=== PATIENT | female | born 1990 | race Caucasian/White ===

== ENCOUNTER 2019-07-13 17:08 | Day surgery (SDC) | payer BC ==
[2019-07-13 17:46] VITALS: BP 105/74; TEMP 98.7; BMI 26.9
[2019-07-13] MEDS ORDERED: FLU VACC QS2019-20(6MOS UP)/PF 60 MCG/0.5 ML SYRINGE IM ONE (18:00)
[2019-07-13 18:09] LABS: Amnisure Test No Membranes Rupture (No Rupture)
[2019-07-13 18:10] LABS: Amnisure Internal Control QC ACCEPTABLE (ACCEPTABLE)
--- NOTE | 2019-07-13 18:23 | PDOC.LDHP ---
Labor and Delivery H&P Chief complaint: loss of fluid HPI: 29 y/o G1 at 40w4d, patient of Dr. Samson, presents with ?LOF since this morning. She reports feeling wetter than usual, but never had a large gush of fluid or significant leakage. Denies, VB, painful ctx, or other concerns. +FM ROS neg for HEENT, cv, pulm, gi, gu, neuro, psych, skin, musculoskeletal or constitutional symptoms other than mentioned above. OB History Details: 1st Current complications: none Past Medical History: None Current medications: pre- vitamins Previous surgical history: none Allergies/Adverse Reactions: Allergies Allergy/AdvReac Type Severity Reaction Status Date / Time minocycline Allergy Mild Nausea Verified 07/13/19 17:47 Social history: none - Physical Exam Vital signs reviewed and normal: yes General: NAD, resting Lungs: nonlabored breathing Abdomen: gravid Extremeties: no edema FHT: category 1 (140s, mod variability, + accels, no decels) [place] contractions every: irregular - Vaginal Exam cm dilated: 3 (SSE neg for pooling, valsalva) Effacement: 75% Station: 0 - Assessment 29 y/o G1 at 40w4d with no e/o SROM or active labor. Amnisure negative, SSE neg for pooling or valsalva. status reassuring with reactive NST. - Plan -: D/c home with precautions. Advised to keep induction scheduled for tomorrow.
== END 2019-07-13 18:30 | disposition home or self-care (01) ==
LOC: L&D/OP 17:08
PROVIDERS: ATTEND Obstetrics & Gynecology
DX: O47.1 False labor at or after 37 completed weeks of gestation (principal); Z3A.40 40 weeks gestation of pregnancy; Z88.1 Allergy status to other antibiotic agents
CPT/HCPCS: 84112

== ENCOUNTER 2019-07-14 19:15 | Inpatient (IN) | payer BC ==
[~2019-07-14 19:15] MED LIST: Bupivacaine HCl 0.5%/Epinephrine 1:200,000/PF 30 ml Vial ONE
[2019-07-14] MEDS ORDERED: Promethazine HCl 25 MG/ML VIAL IM PRN (19:32)
[2019-07-14] MEDS ORDERED: Butorphanol Tartrate 1 MG/ML VIAL SLOW IVP PRN (19:32)
[2019-07-14] MEDS ORDERED: Ondansetron PF 4 MG/2 ML Vial IVP PRN (19:32)
[2019-07-14] MEDS ORDERED: Lidocaine 1% (PF) 30 ML VIAL SC PRN (19:32)
[2019-07-14] MEDS ORDERED: HYDROcodone/Acetaminophen 5/325 mg Tablet PO PRN ×2 (19:32)
[2019-07-14] MEDS ORDERED: NS / Oxytocin 40 units/1000ml 1,000 ML IV PRN (19:32)
[2019-07-14] MEDS ORDERED: Ibuprofen 800 MG TAB PO PRN (19:32)
[2019-07-14] MEDS ORDERED: hydrALAZINE 20 MG/ML VIAL SLOW IVP PRN (19:32)
--- NOTE | 2019-07-14 19:37 | PDOC.LDHP ---
Labor and Delivery H&P Chief complaint: scheduled induction HPI: Pt is a 29yo here for IOL @ 40.5 weeks. Current gestational age (weeks): 40 Due date: 07/09/19 Dating criteria: last menstrual period Grav: 1 Para: 0 Current complications: none Abnormal US findings: No Current medications: pre-humaira vitamins Previous surgical history: none Allergies/Adverse Reactions: Allergies Allergy/AdvReac Type Severity Reaction Status Date / Time minocycline Allergy Mild Nausea Verified 07/13/19 17:47 Social history: none - Physical Exam General: NAD Heart: RRR Lungs: CTAB Abdomen: gravid Extremeties: no edema FHT: category 1 - OB Labs Blood type: O RH: positive Antibody Screen: negative HIV: negative RPR: negative HEPSAg: negative 1 hour GCT: negative GBS: negative Urine drug screen: negative Rubella: immune - Assessment L&D Assessment: medically indicated induction (Prolonged ) - Plan Plan: admit to L&D, cervical ripening, labor augmentation if indicated, informed consent obtained, anesthesia consult for pain management -: A/P: IOL @ 40.5 weeks. Epidural at patient request. Cytotec/Pitocin as indicated for cervical ripening/induction/augmentation.
[2019-07-14] MEDS ORDERED: Misoprostol 100 MCG TAB VAG SCH (19:45)
[2019-07-14] MEDS ORDERED: NS w/ Oxytocin 10 units 500 ML IV SCH ×2 (19:45)
[2019-07-14] MEDS: Lactated Ringer's 1,000 ML IV SCH ×2 (20:42→22:33)
[2019-07-14 21:42] VITALS: BMI 26.9
[2019-07-14] MEDS ORDERED: FLU VACC QS2019-20(6MOS UP)/PF 60 MCG/0.5 ML SYRINGE IM ONE (21:45)
[2019-07-14 21:57] LABS: Hemoglobin 11.9 g/dL (12.0-16.0); Mean Corpuscular HGB CONC 35.4 g/dL (32.0-36.0); Mean Corpuscular Hemoglobin 30.6 pg (27.0-31.0); Mean Corpuscular Volume 86.6 fL (78.0-98.0); Mean Platelet Volume 10.3 fL (7.4-10.4); Platelet Count 153 thou/uL (130-400); Red Blood Cell (RBC) Count 3.89 mill/uL (4.20-5.40)
[2019-07-14 22:38] LABS: Syphilis Antibody Nonreactive (Nonreactive); Syphilis Antibody Index 0.05 S/CO (<1.00 Non-Reactive)
[2019-07-14 22:40] LABS: HBSAg Index 0.29 S/CO (0-0.99); Hep B Surf Ag Non-Reactive S/CO (NonReactive)
[2019-07-15] MEDS ORDERED: Fentanyl 4 mcg/Bup 0.1% Cadd 100 ML ONE (06:14)
[2019-07-15] MEDS ORDERED: ePHEDrine/0.9% NaCl/PF SYRINGE 50 mg/10 ml SLOW IVP PRN (06:57)
[2019-07-15] MEDS ORDERED: Naloxone HCl 0.4 mg/ml Vial IVP PRN ×2 (06:57)
[2019-07-15] MEDS ORDERED: diphenhydrAMINE 50 MG/ML VIAL IVP PRN (06:57)
[2019-07-15] MEDS ORDERED: Acetaminophen 325 MG TAB PO PRN (06:57)
[2019-07-15] MEDS ORDERED: Promethazine HCl 25 MG/ML VIAL IM PRN (06:57)
[2019-07-15] MEDS ORDERED: Lactated Ringer's 500 ML IV PRN (06:57)
[2019-07-15] MEDS ORDERED: Communication Order-Pharmacy FS SCH (07:00)
[2019-07-15] MEDS: Lactated Ringer's 1,000 ML IV SCH ×2 (07:15→07:18)
[2019-07-15] MEDS ORDERED: NS / Oxytocin 40 units/1000ml 1,000 ML ONE (07:21)
[2019-07-15] MEDS ORDERED: Lidocaine 1% (PF) 30 ML VIAL ONE (07:21)
--- NOTE | 2019-07-15 08:37 | PDOC.OPDEL ---
OB Operative/Delivery Note Delivery Dr/Surgeon: Chapin Pre-Delivery Diagnosis: medically indicated induction (prolong preg) Weeks gestation: 40 Anesthesia: epidural - Findings A Sex: male - 1 min: 9 - 5 min: 9 - Additional Findings/Plan Repaired Obstetrical Laceration: 2nd degree Estimated blood loss: 225ml Post delivery plan: routine recovery
[2019-07-15] MEDS: Ondansetron PF 4 MG/2 ML Vial IVP PRN ×2 (08:45→09:33)
[2019-07-15] MEDS ORDERED: Bisacodyl 10 MG SUPP PR PRN (10:19)
[2019-07-15] MEDS ORDERED: Lanolin Ointment 7 GM TUBE TOP PRN (10:19)
[2019-07-15] MEDS ORDERED: HYDROcodone/Acetaminophen 5/325 mg Tablet PO PRN ×2 (10:19)
[2019-07-15] MEDS ORDERED: Ondansetron PF 4 MG/2 ML Vial IVP PRN (10:19)
[2019-07-15] MEDS ORDERED: Milk Of Magnesia 30 ML UDCUP PO PRN (10:19)
[2019-07-15] MEDS ORDERED: NS / Oxytocin 40 units/1000ml 1,000 ML IV SCH (10:19)
[2019-07-15] MEDS ORDERED: Benzocaine-Menthol 82.5 ML CAN TOP PRN (10:19)
[2019-07-15] MEDS ORDERED: hydrALAZINE 20 MG/ML VIAL SLOW IVP PRN (10:19)
[2019-07-15] MEDS ORDERED: Adacel (T-DAP) 0.5 ML SYRINGE IM ONE (10:19)
[2019-07-15] MEDS ORDERED: Docusate Calcium (SURFAK) 240 MG CAP PO SCH (11:00)
[2019-07-15] MEDS ORDERED: Prenatal Vitamin 1 TAB PO SCH (11:00)
[2019-07-15] MEDS: Ibuprofen 800 MG TAB PO SCH ×2 (16:18→21:40)
[2019-07-15] MEDS: Ferrous Sulfate 325 MG TAB PO SCH (17:04)
--- NOTE | 2019-07-15 21:25 | PDOC.PP ---
Post Progress Note Post Day #: 0 Subjective: doing well, baby not latching this evening but did earlier today PO intake tolerated: yes Vital Signs (12 hours) Temp Pulse Resp BP Pulse Ox 07/15/19 19:14 98.1 F 74 15 101/55 L 96 07/15/19 15:39 98.1 F 75 14 95/52 L 96 07/15/19 12:40 98.7 F 61 16 93/54 L 07/15/19 11:20 98.0 F 75 16 99/59 L 99 Weight Weight 157 lb - Physical Examination General: NAD Respiratory: non-labored breathing Psychiatric: normal affect Result Diagrams: 07/14/19 21:12 Additional Labs: Post Labs Blood Type O POSITIVE 07/14/19 22:48 Hep Bs Antigen Non-Reactive S/CO (NonReactive) 07/14/19 21:12 (1) 40 weeks gestation of Code(s): Z3A.40 - 40 WEEKS GESTATION OF Status: Acute (2) Vaginal delivery Code(s): O80 - ENCOUNTER FOR FULL-TERM UNCOMPLICATED DELIVERY Status: Acute - Assessment/Plan PPD0 doing well, will continue to advance orders.
[2019-07-15] MEDS: Docusate Calcium (SURFAK) 240 MG CAP PO SCH (21:40)
[2019-07-16] MEDS: Ibuprofen 800 MG TAB PO SCH ×3 (03:49→21:39)
[2019-07-16 06:33] LABS: Hemoglobin 10.9 g/dL (12.0-16.0)
[2019-07-16] MEDS: Ferrous Sulfate 325 MG TAB PO SCH ×2 (08:02→18:37)
[2019-07-16] MEDS: Docusate Calcium (SURFAK) 240 MG CAP PO SCH ×2 (08:03→21:39)
[2019-07-16] MEDS: Prenatal Vitamin 1 TAB PO SCH (08:03)
--- NOTE | 2019-07-16 08:13 | PDOC.PP ---
Post Progress Note Post Day #: 1 Subjective: doing well, breast feeding, normal lochia PO intake tolerated: yes Flatus: yes Ambulation: yes Vital Signs (12 hours) Temp Pulse Resp BP Pulse Ox 07/16/19 07:27 98.4 F 60 16 112/68 97 07/16/19 03:50 98.1 F 71 16 101/54 L 98 07/15/19 23:18 98.3 F 64 18 102/54 L 97 Weight Weight 157 lb - Physical Examination General: NAD Respiratory: non-labored breathing Abdominal: no distention Fundus firm & at: below umb Skin: no rash Neurological: no gross focal deficits Psychiatric: A&Ox3, normal affect Result Diagrams: 07/16/19 06:22 Additional Labs: Post Labs Blood Type O POSITIVE 07/14/19 22:48 Hep Bs Antigen Non-Reactive S/CO (NonReactive) 07/14/19 21:12 (1) 40 weeks gestation of Code(s): Z3A.40 - 40 WEEKS GESTATION OF Status: Acute (2) Vaginal delivery Code(s): O80 - ENCOUNTER FOR FULL-TERM UNCOMPLICATED DELIVERY Status: Acute - Assessment/Plan PPD1 doing well, plan for DC tomorrow AM.
[2019-07-17] MEDS: Ibuprofen 800 MG TAB PO SCH ×2 (06:38→15:14)
--- NOTE | 2019-07-17 07:05 | PDOC.PP ---
Post Progress Note Post Day #: 2 Subjective: 29YO G1 now P1 who is PP day #2 s/p a @ 40.5 weeks. Doing well this AM. Breast feeding well. Ready to go home. PO intake tolerated: yes Flatus: yes Ambulation: yes Vital Signs (12 hours) Temp Pulse Resp BP Pulse Ox 07/16/19 19:54 98.2 F 76 16 111/53 L 100 Weight Weight 71.214 kg - Physical Examination General: NAD Cardiovascular: no m/r/g, RRR Respiratory: clear to auscultation bilaterally, non-labored breathing Abdominal: + bowel sounds, lochia (normal), no distention, appropriately TTP Extremities: negative homans (B) Skin: no rash Neurological: no gross focal deficits Psychiatric: A&Ox3, normal affect Result Diagrams: 07/16/19 06:22 Additional Labs: Post Labs Blood Type O POSITIVE 07/14/19 22:48 Hep Bs Antigen Non-Reactive S/CO (NonReactive) 07/14/19 21:12 (1) 40 weeks gestation of Code(s): Z3A.40 - 40 WEEKS GESTATION OF Status: Acute (2) Vaginal delivery Code(s): O80 - ENCOUNTER FOR FULL-TERM UNCOMPLICATED DELIVERY Status: Acute - Assessment/Plan 29YO pp day #2 s/p a @ 40.5 weeks w/ a second degree laceration s/p repair. PP day #2: - VSS. Tolerating PO and ambulating well. Passing gas & voiding normally. Breast feeding well. Normal lochia. Dispo: Will discharge home today with PP f/u with PCP in 2-4 weeks. Addendum - Attending - Attending Attestation Date/Time: 07/19/19 1200 I personally evaluated the patient and discussed the management with Dr. Feliz I agree with the History, Examination, Assessment and Plan documented above with any addition or exceptions noted below.
[2019-07-17] MEDS: Ferrous Sulfate 325 MG TAB PO SCH (07:08)
[2019-07-17] MEDS: Docusate Calcium (SURFAK) 240 MG CAP PO SCH (08:56)
[2019-07-17] MEDS: Prenatal Vitamin 1 TAB PO SCH (08:57)
[2019-07-17 11:42] VITALS: BP 107/52; TEMP 98.7
== END 2019-07-17 15:29 | disposition home or self-care (01) | DRG 807 ==
LOC: L&D 19:25 → 3SE 07-15 11:20
PROVIDERS: ADMIT Obstetrics & Gynecology; ATTEND Obstetrics & Gynecology
PROC: 10E0XZZ Delivery of Products of Conception, External Approach (ICD-10-PCS; principal; 2019-07-14)
PROC: 0KQM0ZZ Repair Perineum Muscle, Open Approach (ICD-10-PCS; 2019-07-14)
PROC: 3E033VJ Introduction of Other Hormone into Peripheral Vein, Percutaneous Approach (ICD-10-PCS; 2019-07-14)
DX: O48.1 Prolonged pregnancy (principal); Z37.0 Single live birth; O48.0 Post-term pregnancy; O70.1 Second degree perineal laceration during delivery; Z3A.40 40 weeks gestation of pregnancy
CPT/HCPCS: 36415; 84112; 85014; 85018; 85027; 86780; 86850; 86900; 86901; 87340; J0670; J2001; J2405; J2590